=== PATIENT | male | born 1955 | race Caucasian/White ===

== ENCOUNTER 2016-10-10 08:46 | Outpatient (CLI) | payer OTHER | END 2016-10-10 08:47 | disposition home or self-care (01) | DX: N05.9 Unspecified nephritic syndrome with unspecified morphologic changes (principal) ==

== ENCOUNTER 2016-10-27 15:39 | Outpatient (CLI) | payer OTHER | END 2016-10-27 15:40 | disposition home or self-care (01) | DX: E11.22 Type 2 diabetes mellitus with diabetic chronic kidney disease (principal); N18.3 Chronic kidney disease, stage 3 (moderate) ==

== ENCOUNTER 2016-12-07 15:36 | Outpatient (CLI) | payer OTHER | END 2016-12-07 15:37 | disposition home or self-care (01) | DX: N05.9 Unspecified nephritic syndrome with unspecified morphologic changes (principal); D70.9 Neutropenia, unspecified; R80.9 Proteinuria, unspecified; E83.30 Disorder of phosphorus metabolism, unspecified; N25.81 Secondary hyperparathyroidism of renal origin ==

== ENCOUNTER 2017-05-02 16:05 | Outpatient (CLI) | payer OTHER ==
[2017-05-02 19:58] LABS: CALCIUM 9.2 mg/dL (8.5-10.3); POTASSIUM 4.7 mmol/L (3.5-5.0)
[2017-05-02 20:25] LABS: HEMOGLOBIN A1C 0.7 g/dL
== END 2017-05-02 16:06 | disposition home or self-care (01) ==
LOC: LAB.WCP 16:05
PROVIDERS: ATTEND Family Medicine
DX: E11.9 Type 2 diabetes mellitus without complications (principal); N18.3 Chronic kidney disease, stage 3 (moderate); I12.9 Hypertensive chronic kidney disease with stage 1 through stage 4 chronic kidney disease, or unspecified chronic kidney disease
CPT/HCPCS: 36415; 80048; 83036

== ENCOUNTER 2018-05-28 08:00 | Outpatient (CLI) | payer OTHER ==
[2018-05-28 18:55] LABS: BASOPHILS % (AUTO) 0.5 %; EOSINOPHILS # (AUTO) 0.3 10^3/uL (0.0-0.7); EOSINOPHILS % (AUTO) 3.8 %; HGB - HEMOGLOBIN 13.3 g/dL (14.0-18.0); LYMPHOCYTES # (AUTO) 2.1 10^3/uL (1.5-3.5); LYMPHOCYTES % (AUTO) 28.1 %; MEAN CORPUSCULAR HEMOGLOBIN 30.3 pg (27.0-31.0); MEAN CORPUSCULAR HGB CONC 33.6 g/dL (32.0-36.0); MEAN CORPUSCULAR VOLUME 90.1 fL (80.0-94.0); MEAN PLATELET VOLUME 8.5 fL (7.4-11.4); MONOCYTES # (AUTO) 0.7 10^3/uL (0.0-1.0); MONOCYTES % (AUTO) 8.6 %; NEUTROPHILS # (AUTO) 4.5 10^3/uL (1.5-6.6); PLT - PLATELET COUNT 240 10^3/uL (130-450); RED BLOOD COUNT 4.38 10^6/uL (4.70-6.10); RED CELL DISTRIBUTION WIDTH 14.3 % (12.0-15.0); WHITE BLOOD COUNT 7.6 x10^3/uL (4.8-10.8)
[2018-05-28 18:57] LABS: ALBUMIN 4.3 g/dL (3.2-5.5); ALBUMIN/GLOBULIN RATIO 1.3 (1.0-2.2); BILIRUBIN,TOTAL 0.6 mg/dL (0.2-1.0); CALCIUM 9.1 mg/dL (8.5-10.3); TOTAL PROTEIN 7.6 g/dL (6.7-8.2)
[2018-05-28 19:25] LABS: HB2 TOTAL 13.8 g/dL; HEMOGLOBIN A1C 0.77 g/dL; HEMOGLOBIN A1C % 7.3 % (4.6-6.2)
== END 2018-05-28 08:01 | disposition home or self-care (01) ==
LOC: LAB.WCP 08:00
PROVIDERS: ATTEND Family Medicine
DX: E11.9 Type 2 diabetes mellitus without complications (principal); I10 Essential (primary) hypertension
CPT/HCPCS: 36415; 80053; 83036; 85025

== ENCOUNTER 2018-11-30 17:14 | Outpatient (CLI) | payer OTHER | END 2018-11-30 23:59 | disposition home or self-care (01) | LOC: LAB.R 17:14 | PROVIDERS: ATTEND Nurse Practitioner | DX: R33.9 Retention of urine, unspecified (principal) | CPT/HCPCS: 87086 ==

== ENCOUNTER 2018-12-18 08:03 | Outpatient (CLI) | payer BC ==
[2018-12-18 08:34] LABS: BASOPHILS % (AUTO) 0.7 %; EOSINOPHILS # (AUTO) 0.2 10^3/uL (0.0-0.7); EOSINOPHILS % (AUTO) 3.3 %; HGB - HEMOGLOBIN 13.3 g/dL (14.0-18.0); LYMPHOCYTES # (AUTO) 1.6 10^3/uL (1.5-3.5); LYMPHOCYTES % (AUTO) 23.6 %; MEAN CORPUSCULAR HEMOGLOBIN 29.7 pg (27.0-31.0); MEAN CORPUSCULAR HGB CONC 33.2 g/dL (32.0-36.0); MEAN CORPUSCULAR VOLUME 89.5 fL (80.0-94.0); MEAN PLATELET VOLUME 7.7 fL (7.4-11.4); MONOCYTES # (AUTO) 0.6 10^3/uL (0.0-1.0); MONOCYTES % (AUTO) 8.8 %; NEUTROPHILS # (AUTO) 4.2 10^3/uL (1.5-6.6); NEUTROPHILS % (AUTO) 63.6 %; PLT - PLATELET COUNT 210 10^3/uL (130-450); RED BLOOD COUNT 4.48 10^6/uL (4.70-6.10); RED CELL DISTRIBUTION WIDTH 14.1 % (12.0-15.0); WHITE BLOOD COUNT 6.6 x10^3/uL (4.8-10.8)
[2018-12-18 08:48] LABS: HB2 TOTAL 14.6 g/dL; HEMOGLOBIN A1C 0.8 g/dL; HEMOGLOBIN A1C % 7.2 % (4.6-6.2)
[2018-12-18 08:51] LABS: ALBUMIN 4.1 g/dL (3.2-5.5); ALBUMIN/GLOBULIN RATIO 1.2 (1.0-2.2); ALKALINE PHOSPHATASE 77 IU/L (42-121); ALT ALANINE AMINOTRANSFERASE 16 IU/L (10-60); AST ASPARTATE AMINOTRANSFERASE 16 IU/L (10-42); BILIRUBIN,TOTAL 0.7 mg/dL (0.2-1.0); BUN - BLOOD UREA NITROGEN 51 mg/dL (6-20); CARBON DIOXIDE - CO2 23 mmol/L (21-32); CHLORIDE 104 mmol/L (101-111); CHOLESTEROL 155 mg/dL; CREATININE 2.9 mg/dL (0.6-1.2); GFR - MDRD 22 (>89); GLUCOSE 137 mg/dL (70-100); HDL CHOLESTEROL 26 mg/dL; LDL CHOLESTEROL,CALCULATED 85 mg/dL; LDL/HDL RATIO 3.3 (<3.6); SODIUM 136 mmol/L (135-145); TOTAL PROTEIN 7.5 g/dL (6.7-8.2); VLDL CHOLESTEROL 44 mg/dL
[2018-12-18 09:05] LABS: CREATININE,URINE 62.9 mg/dL; MICROALBUM/CREATININE RATIO,UR 73.1 ug/mg (<30.0); MICROALBUMIN,URINE 4.6 mg/dL (0-300.0)
[2018-12-18 09:25] LABS: PSA FREE 2.04 ng/mL (0.16-2.81)
[2018-12-18 09:26] LABS: PSA TOTAL 10.87 ng/mL (0.000-2.000)
== END 2018-12-18 08:04 | disposition home or self-care (01) ==
LOC: LAB 08:03
PROVIDERS: ATTEND Nurse Practitioner
DX: R33.9 Retention of urine, unspecified (principal); E11.9 Type 2 diabetes mellitus without complications; N18.3 Chronic kidney disease, stage 3 (moderate); I12.9 Hypertensive chronic kidney disease with stage 1 through stage 4 chronic kidney disease, or unspecified chronic kidney disease
CPT/HCPCS: 36415; 80053; 80061; 82043; 82570; 83036; 83721; 84153; 84154; 85025; 87086

== ENCOUNTER 2019-01-10 15:18 | Outpatient (CLI) | payer BC ==
[2019-01-10 16:42] LABS: BILIRUBIN,URINE NEGATIVE (NEGATIVE); CLARITY,URINE CLOUDY (CLEAR); GLUCOSE, URINE (UA) NEGATIVE (NEGATIVE); KETONES,URINE (UA) NEGATIVE (NEGATIVE); LEUKOCYTE ESTERASE, URINE LARGE (NEGATIVE); NITRITE,URINE POSITIVE (NEGATIVE); OCCULT BLOOD,URINE MODERATE (NEGATIVE); PROTEIN,URINE NEGATIVE (NEGATIVE); UROBILINOGEN,URINE 0.2 (NORMAL) E.U./dL (NORMAL)
[2019-01-10 17:01] LABS: BACTERIA,URINE Moderate /HPF (None Seen); RBC,URINE 0-5 /HPF (0-5); SQUAMOUS EPITHELIAL CELL,UR NONE SEEN (<= Few)
== END 2019-01-10 15:19 | disposition home or self-care (01) ==
LOC: LAB 15:18
PROVIDERS: ATTEND Student in an Organized Health Care Education/Training Program
DX: N30.00 Acute cystitis without hematuria (principal)
CPT/HCPCS: 81001; 87086

== ENCOUNTER 2019-01-25 17:15 | Outpatient (CLI) | payer BC ==
--- NOTE | 2019-01-27 11:35 | Ultrasound Report ---
Reason: CHRONIC KIDNEY DISEASE STAGE 4 Procedure Date: 01/25/2019 Accession Number: [id number] / [id number] Procedure: US - Retroperitoneal CPT Code: FULL RESULT: EXAM: RENAL ULTRASOUND EXAM DATE: 01/25/2019 05:50 PM. CLINICAL HISTORY: Chronic kidney disease stage 4. COMPARISON: Retroperitoneal 09/09/2016 3:41 PM. TECHNIQUE: Real-time scanning was performed with static images obtained. FINDINGS: Right Kidney: 14.8 x 8.6 x 10.6 cm. Severe right-sided hydronephrosis at the renal pelvis measuring approximately 6.8 cm in diameter. No renal cortical contour-deforming mass or stones. Dilated ureter measures 2.1 cm. Echogenic renal cortex noted. Left Kidney: 13.1 x 7.2 x 10.3 cm. Moderate to severe left hydronephrosis has improved since the prior ultrasound. Left renal pelvis measures 4.1 cm compared with the previous 6.5 cm. Proximal left ureter measures 1.3 cm. Echogenic renal cortex noted. Bladder: Bilateral jets seen. The prevoid bladder volume was 454.5 cc. The postvoid bladder volume was 255 cc. Other: Enlarged prostate gland measures 6 x 6 x 6.8 cm, 129 cc. IMPRESSION: 1. Severe stable right hydronephrosis. Moderate to severe improved left hydronephrosis. Dilated proximal bilateral ureters. No obstructing lesion is identified. 2. No renal mass or stone. Echogenic renal cortex compatible with chronic renal insufficiency. 3. Postvoid residual of 255 cc. 4. Enlarged prostate gland with a volume of 129 cc. [facility]
== END 2019-01-25 17:16 | disposition home or self-care (01) ==
LOC: DI 17:15
PROVIDERS: ATTEND Student in an Organized Health Care Education/Training Program
DX: N13.30 Unspecified hydronephrosis (principal); N18.4 Chronic kidney disease, stage 4 (severe)
CPT/HCPCS: 76770

== ENCOUNTER 2019-02-20 15:38 | Outpatient (CLI) | payer BC, OTHER ==
--- NOTE | 2019-02-21 10:20 | CT Report ---
Reason: GROSS HEMATURIA Procedure Date: 02/20/2019 Accession Number: [id number] / [id number] Procedure: CT - Abdomen/Pelvis WO CPT Code: FULL RESULT: EXAM: CT ABDOMEN AND PELVIS (CT KUB) EXAM DATE: 02/20/2019 03:56 PM. CLINICAL HISTORY: Gross hematuria. COMPARISONS: None. TECHNIQUE: Routine axial helical CT imaging was performed through the abdomen and pelvis without IV contrast. Reconstructions: Coronal and sagittal. In accordance with CT protocol optimization, one or more of the following dose reduction techniques were utilized for this exam: automated exposure control, adjustment of mA and/or KV based on patient size, or use of iterative reconstructive technique. FINDINGS: Lung Bases: Scarring or atelectasis at the anterior right lung base as well as a granuloma. Right Kidney/Ureter: There is cortical thinning and at least moderate hydroureteronephrosis with tortuous dilated ureter. No calculus is seen. Left Kidney/Ureter: There is mild left-sided hydronephrosis as well as mild cortical volume loss, less when compared to the right side. No calculus is identified. Other Solid Organs: The noncontrast liver, spleen, adrenal glands are unremarkable with the exception of evidence of prior granulomata in the spleen as well as a calcification within the liver. Gallbladder/Bile Ducts: Unremarkable. Peritoneal Cavity: No free fluid, free air or valeri adenopathy. Bowel is grossly unremarkable. Pelvic Organs: Subjectively, there is bladder wall thickening in the setting of a only partially distended bladder and marked enlargement of the prostate. Separately, there appears to be asymmetric soft tissue thickening at the posterior inferior bladder base, trigone area where the prostate is lifting the bladder, not well evaluated on a noncontrast examination but suspicious in the setting of hydroureteronephrosis without obstructing calculus. Vasculature: Unremarkable. Other: None. IMPRESSION: Bilateral cortical thinning right greater than left with moderate to severe hydroureteronephrosis on the right side without an obstructing calculus visualized. This in the setting of irregular bladder wall thickening is suspicious for malignancy and direct visualization by cystoscopy is recommended. [facility]
== END 2019-02-20 15:39 | disposition home or self-care (01) ==
LOC: DI 15:38
PROVIDERS: ATTEND Urology
DX: N13.30 Unspecified hydronephrosis (principal); N32.9 Bladder disorder, unspecified; R31.0 Gross hematuria
CPT/HCPCS: 74176

== ENCOUNTER 2019-03-25 08:00 | Outpatient (CLI) | payer BC, OTHER ==
[2019-03-25 14:41] LABS: BASOPHILS % (AUTO) 0.4 %; EOSINOPHILS # (AUTO) 0.2 10^3/uL (0.0-0.7); EOSINOPHILS % (AUTO) 2.4 %; HGB - HEMOGLOBIN 15.1 g/dL (14.0-18.0); LYMPHOCYTES # (AUTO) 1.8 10^3/uL (1.5-3.5); LYMPHOCYTES % (AUTO) 23.6 %; MEAN CORPUSCULAR HEMOGLOBIN 28.7 pg (27.0-31.0); MEAN CORPUSCULAR HGB CONC 31.1 g/dL (32.0-36.0); MEAN CORPUSCULAR VOLUME 92.4 fL (80.0-94.0); MONOCYTES # (AUTO) 0.5 10^3/uL (0.0-1.0); MONOCYTES % (AUTO) 7.2 %; NEUTROPHILS # (AUTO) 4.9 10^3/uL (1.5-6.6); NEUTROPHILS % (AUTO) 65.6 %; PLT - PLATELET COUNT 213 10^3/uL (130-450); RED BLOOD COUNT 5.26 10^6/uL (4.70-6.10); RED CELL DISTRIBUTION WIDTH 13.6 % (12.0-15.0); WHITE BLOOD COUNT 7.5 x10^3/uL (4.8-10.8)
[2019-03-25 14:49] LABS: ALBUMIN 4.5 g/dL (3.2-5.5); ALBUMIN/GLOBULIN RATIO 1.2 (1.0-2.2); BILIRUBIN,TOTAL 0.8 mg/dL (0.2-1.0); CALCIUM 9.3 mg/dL (8.5-10.3); CREATININE 2.6 mg/dL (0.6-1.2); TOTAL PROTEIN 8.2 g/dL (6.7-8.2)
[2019-03-25 14:59] LABS: HEMOGLOBIN A1C 0.93 g/dL; HEMOGLOBIN A1C % 7.5 % (4.6-6.2)
== END 2019-03-25 23:59 | disposition home or self-care (01) ==
LOC: LAB 08:00
PROVIDERS: ATTEND Nurse Practitioner
DX: E11.22 Type 2 diabetes mellitus with diabetic chronic kidney disease (principal); N18.3 Chronic kidney disease, stage 3 (moderate); I12.9 Hypertensive chronic kidney disease with stage 1 through stage 4 chronic kidney disease, or unspecified chronic kidney disease
CPT/HCPCS: 36415; 80053; 83036; 85025

== ENCOUNTER 2019-09-03 07:07 | Outpatient (CLI) | payer BC, OTHER ==
[2019-09-03 07:56] LABS: ALBUMIN 4.5 g/dL (3.2-5.5); ALBUMIN/GLOBULIN RATIO 1.4 (1.0-2.2); BILIRUBIN,TOTAL 0.7 mg/dL (0.2-1.0); CALCIUM 9.1 mg/dL (8.5-10.3); CREATININE 2.8 mg/dL (0.6-1.2); TOTAL PROTEIN 7.8 g/dL (6.7-8.2)
[2019-09-03 08:53] LABS: HB2 TOTAL 14.6 g/dL; HEMOGLOBIN A1C 0.92 g/dL; HEMOGLOBIN A1C % 7.9 % (4.6-6.2)
== END 2019-09-03 07:08 | disposition home or self-care (01) ==
LOC: LAB 07:07
PROVIDERS: ATTEND Nurse Practitioner
DX: E11.22 Type 2 diabetes mellitus with diabetic chronic kidney disease (principal); N18.3 Chronic kidney disease, stage 3 (moderate); I12.9 Hypertensive chronic kidney disease with stage 1 through stage 4 chronic kidney disease, or unspecified chronic kidney disease
CPT/HCPCS: 36415; 80053; 83036

== ENCOUNTER 2019-11-11 21:27 | Outpatient (CLI) | payer BC, OTHER | END 2019-11-11 21:28 | disposition E | LOC: EMS 21:27 | PROVIDERS: ATTEND Surgery | DX: I46.9 Cardiac arrest, cause unspecified (principal) | CPT/HCPCS: A0425; A0427 ==